=== PATIENT | female | born 1965 | race Caucasian/White ===

== ENCOUNTER 2019-12-05 17:35 | Inpatient (IN) | payer MEDICAID ==
[~2019-12-05] VITALS: Ht 157.5 cm; Wt 77.1 kg
[2019-12-05 18:47] LABS: BASOPHILS % 0.7 % (0.0-2.0); EOSINOPHILS % 0.3 % (0.0-5.0); HEMATOCRIT. 40.2 % (36.0-48.0); LYMPHOCYTES % 24.6 % (20.0-50.0); MEAN CORPUSCULAR HEMOGLOBIN 30.7 pg (28.0-32.0); MEAN CORPUSCULAR VOLUME 87.9 fL (81.0-99.0); MEAN PLATELET VOLUME 7.8 fl (7.4-10.4); MONOCYTES % 5.7 % (2.0-8.0); NEUTROPHILS % 68.7 % (40.0-76.0); PLATELET 298 x1000/uL (130-400); RED BLOOD CELL COUNT 4.57 mill/uL (4.2-5.4); RED CELL DISTRIBUTION WIDTH 12.8 % (11.6-14.6)
[2019-12-05 18:52] LABS: CHLORIDE 101 mEq/L (98-107)
[2019-12-05] MEDS ORDERED: ASPIRIN 325MG EC TABLET PO NR (19:15)
[2019-12-05 19:19] LABS: CLARITY URINE CLEAR (CLEAR); COLOR URINE YELLOW (YELLOW); KETONES URINE TRACE (NEGATIVE); LEUKOCYTE ESTERASE URINE 2+ (NEGATIVE); NITRITE URINE NEGATIVE (NEGATIVE); OCCULT BLOOD URINE 1+ (NEGATIVE); PROTEIN URINE NEGATIVE (NEGATIVE); SPECIFIC GRAVITY URINE 1.015 (1.005-1.030); UROBILINOGEN URINE 0.2 E.U./dL (0.2-1.0)
[2019-12-05] MEDS ORDERED: ACETAMINOPHEN 500MG TABLET PO ONE (22:30)
[2019-12-06] MEDS: HYDROCODONE/ACETAMINOPHEN 5/325MG TABLET PO PRN ×3 (04:42→20:16)
[2019-12-06 08:30] VITALS: BP 133/72
[2019-12-06] MEDS ORDERED: ACETAMINOPHEN 325MG TABLET PO PRN (09:15)
[2019-12-06] MEDS ORDERED: ONDANSETRON HCL 4MG/2ML INJ IV PRN (09:15)
[2019-12-06 10:48] LABS: LDL CHOLESTEROL 135 mg/dL (5-100)
[2019-12-06 10:51] LABS: HDL CHOLESTEROL 56 mg/dL (40-59)
[2019-12-06 11:03] VITALS: BP 133/72
[2019-12-06] MEDS ORDERED: REGADENOSON 0.4 MG/5 ML IV ONE (11:30)
[2019-12-06 12:00] VITALS: BP 135/72
[2019-12-06] MEDS: NITROGLYCERIN OINT 1GM/INCH UDPKT TD SCH ×2 (14:56→22:00)
[2019-12-06] MEDS: CLOPIDOGREL 75MG TABLET PO SCH (15:13)
[2019-12-06 16:00] VITALS: BP 123/81
[2019-12-06] MEDS ORDERED: FLUCONAZOLE 150MG TABLET PO NR (17:00)
[2019-12-06] MEDS ORDERED: HYDR25TA PO (19:05)
[2019-12-06] MEDS ORDERED: LISI10TA5 MT (19:05)
[2019-12-06] MEDS ORDERED: METF-416 MT (19:05)
[2019-12-06] MEDS ORDERED: METF-416 PO (19:05)
[2019-12-06 20:31] VITALS: BP 126/84
[2019-12-06] MEDS: ATORVASTATIN CALCIUM 40MG TABLET PO SCH (21:40)
[2019-12-06] MEDS: METOPROLOL TARTRATE 25MG TABLET PO SCH (21:40)
[2019-12-07] MEDS: HYDROCODONE/ACETAMINOPHEN 5/325MG TABLET PO PRN ×3 (02:03→13:28)
[2019-12-07 04:00] VITALS: BP 109/73
[2019-12-07] MEDS: NITROGLYCERIN OINT 1GM/INCH UDPKT TD SCH ×3 (05:41→22:00)
[2019-12-07 08:00] VITALS: BP 106/68
[2019-12-07 11:30] VITALS: BP 128/74
[2019-12-07] MEDS ORDERED: REGADENOSON 0.4 MG/5 ML IV ONE (11:59)
[2019-12-07 13:25] VITALS: BP 138/82
[2019-12-07] MEDS: METOPROLOL TARTRATE 25MG TABLET PO SCH ×2 (13:28→21:48)
[2019-12-07] MEDS: ASPIRIN 81MG TABLET PO SCH (13:28)
[2019-12-07] MEDS: CLOPIDOGREL 75MG TABLET PO SCH (13:28)
[2019-12-07 16:00] VITALS: BP 112/72
[2019-12-07] MEDS ORDERED: LORAZEPAM 2MG/ML CPJ IV NR (20:00)
[2019-12-07] MEDS ORDERED: CEFTRIAXONE 1 G PREMIX 50 ML IV SCH (20:00)
[2019-12-07] MEDS ORDERED: LORAZEPAM 2MG/ML CPJ IV PRN (20:00)
[2019-12-07] MEDS ORDERED: DEXTROSE 50% WATER 50ML SYRINGE IV PRN (20:15)
[2019-12-07 20:29] VITALS: BP 123/82
[2019-12-07] MEDS: INSULIN LISPRO 100 UNITS/ML SUBCUT SCH (21:00)
[2019-12-07] MEDS: BLOOD SUGAR DIAGNOSTIC STRIP TEST SCH (21:00)
[2019-12-07] MEDS ORDERED: ZOLPIDEM TARTRATE 5MG TABLET PO PRN (21:00)
[2019-12-07] MEDS ORDERED: CEFTRIAXONE 1,000 MG in DEXTROSE 5% WATER 50 ML IV SCH (21:00)
[2019-12-07] MEDS: ATORVASTATIN CALCIUM 40MG TABLET PO SCH (21:48)
[2019-12-08] MEDS: NITROGLYCERIN OINT 1GM/INCH UDPKT TD SCH ×2 (00:14→06:00)
[2019-12-08 00:30] VITALS: BP 110/51
[2019-12-08 04:00] VITALS: BP 105/61
[2019-12-08] MEDS: HYDROCODONE/ACETAMINOPHEN 5/325MG TABLET PO PRN (06:17)
[2019-12-08] MEDS: INSULIN LISPRO 100 UNITS/ML SUBCUT SCH (07:50)
[2019-12-08] MEDS: BLOOD SUGAR DIAGNOSTIC STRIP TEST SCH (07:51)
[2019-12-08] MEDS ORDERED: LORAZEPAM 2MG/ML CPJ IV PRN (08:00)
[2019-12-08 08:20] VITALS: BP 117/77
[2019-12-08] MEDS: CLOPIDOGREL 75MG TABLET PO SCH (09:36)
[2019-12-08] MEDS: METOPROLOL TARTRATE 25MG TABLET PO SCH (09:36)
[2019-12-08] MEDS: ASPIRIN 81MG TABLET PO SCH (09:36)
[2019-12-08 12:00] VITALS: BP 120/60
[2019-12-08] MEDS ORDERED: LORAZEPAM 2MG/ML CPJ IV NR (12:45)
[2019-12-08 16:00] VITALS: BP 120/60
[2019-12-08 16:22] VITALS: BP 120/60
== END 2019-12-08 18:00 | disposition home or self-care (01) | DRG 243 ==
LOC: ER 17:35 → MICUSO 22:36 → EDBEDREQTM 22:38 → EDBEDREQ 22:38 → 6WST 12-06 07:34
PROVIDERS: ADMIT Internal Medicine; ATTEND Internal Medicine
DX: K21.9 Gastro-esophageal reflux disease without esophagitis (principal); I10 Essential (primary) hypertension; E11.9 Type 2 diabetes mellitus without complications; E78.5 Hyperlipidemia, unspecified; E66.9 Obesity, unspecified; M48.061 Spinal stenosis, lumbar region without neurogenic claudication; M48.07 Spinal stenosis, lumbosacral region; M47.816 Spondylosis without myelopathy or radiculopathy, lumbar region; M43.17 Spondylolisthesis, lumbosacral region; Z71.3 Dietary counseling and surveillance; Z68.31 Body mass index [BMI] 31.0-31.9, adult; Z79.84 Long term (current) use of oral hypoglycemic drugs; Z79.899 Other long term (current) drug therapy
CPT/HCPCS: 36415; 71045; 72131; 72148; 73501; 78452; 80053; 80061; 81003; 82962; 83036; 83880; 84443; 84484; 85025; 93005; 93017; 93306; 99285; A9500; J0696; J2060; J2405; J2785; J7060